=== PATIENT | female | born 1985 | race African-American/Black ===

== ENCOUNTER 2019-05-03 12:59 | Inpatient (IN) | payer OTHER ==
[2019-05-03 15:20] VITALS: BMI 20.9
--- NOTE | 2019-05-03 15:42 | HP ---
CIWA Score Nausea/Vomitin-No Nausea/No Vomiting Muscle Tremors: 1-None Visible, but [place] Anxiety: 4-Mod. Anxious/Guarded Agitation: 4-Moderately Restless Paroxysmal Sweats: 2 Orientation: 0-Oriented Tacttile Disturbances: 0-None Auditory Disturbances: 0-None Visual Disturbances: 0-None Headache: 2-Mild CIWA-Ar Total Score: 13 - Admission Criteria OASAS Guidelines: Admission for Medically Managed Detox: Requires at least one of the followin. CIWA greater than 12 2. Seizures within the past 24 hours 3. Delirium tremens within the past 24 hours 4. Hallucinations within the past 24 hours 5. Acute intervention needed for co occurring medical disorder 6. Acute intervention needed for co occurring psychiatric disorder 7. Severe withdrawal that cannot be handled at a lower level of care (continued vomiting, continued diarrhea, abnormal vital signs) requiring intravenous medication and/or fluids 8. Admitting History and Physical - Admission History of Present Illness: 33 yo f w/ PMH Bipolar I disorder who comes into [facility] for assistance with detoxification from alcohol. Patient endorses drinking an average of 1 pint of vodka and 3x 24 oz beers daily since the age of 18. Last drink was at 1am. Patient denies blackouts or seizures from alcohol. Patient endorses smoking $150 of crack daily since 31 years old. Last use was today. Patient endorses using marijuana 4 blunts per day since the age of 18. Last use thursday. Patient endorses smoking 2-4 cigarettes per day. The patient has tried to attended rehab and detox multiple times, with the most recent one being last year at [facility]. She completed the program but relapsed shortly after. She intended to undergo detox and rehab, preferably in a long-term program, this time around. The patient has been diagnosed with Bipolar type I and was previously on prozac and lamictal, but has not taken them in over a year 2/2 drug use. History Source: Patient Limitations to Obtaining History: No Limitations - Past Medical History Psych: Yes: Addictions, Bipolar (type 1) - Smoking History Smoking history: Current every day smoker Have you smoked in the past 12 months: Yes Aproximately how many cigarettes per day: 4 Admission ROS S - HPI Allergies/Adverse Reactions: Allergies Allergy/AdvReac Type Severity Reaction Status Date / Time No Known Allergies Allergy Verified 05/03/19 15:09 - Ebola screening Have you traveled outside of the country in the last 21 days: No Have you had contact with anyone from an Ebola affected area: No Do you have a fever: No - Review of Systems Constitutional: No Symptoms Reported EENT: reports: No Symptoms Reported Respiratory: reports: No Symptoms reported Cardiac: reports: No Symptoms Reported GI: reports: Nausea. denies: Vomiting : reports: No Symptoms Reported Musculoskeletal: reports: No Symptoms Reported Neuro: reports: Headache, Tremors Psychiatric: reports: Judgement Intact, Mood/Affect Appropiate, Orientated x3, Anxious Patient History - Smoking Cessation Smoking history: Current every day smoker Have you smoked in the past 12 months: Yes Aproximately how many cigarettes per day: 4 Initiated information on smoking cessation: Yes 'Breaking Loose' booklet given: 05/03/19 - Substances abused Crack Substance route: Smoking Frequency: Daily Amount used: $150 Age of first use: 31 Date of last use: 05/03/19 Alcohol Substance route: Oral Frequency: Daily Amount used: 2 pints of vodka & 3 24 oz beers Age of first use: 18 Date of last use: 05/02/19 Marijuana/Hashish Substance route: Smoking Frequency: Daily Amount used: 4 blunts Age of first use: 18 Date of last use: 04/29/19 Admission Physical Exam S - Vital Signs Vital Signs: Vital Signs - 24 hr 05/03/19 15:09 Temperature 98.7 F Pulse Rate 82 Respiratory 18 Rate Blood Pressure 118/81 - Physical General Appearance: Yes: Disheveled, Mild Distress HEENTM: Yes: EOMI, Normal ENT Inspection, JAIRON, Pharynx Normal Respiratory: Yes: Chest Non-Tender, Lungs Clear, Normal Breath Sounds, No Respiratory Distress, No Accessory Muscle Use Neck: Yes: Trachea in good position Cardiology: Yes: Regular Rhythm, Regular Rate, S1, S2. No: JVD, Murmur, Gallop/ S3, Gallop/S4 Abdominal: Yes: Normal Bowel Sounds, Non Tender, Flat, Soft Neurological: Yes: real estate leasing agent II-XII NML intact, Fully Oriented, Alert, Motor Strength 5/5, Normal Mood/Affect, Normal Response Integumentary: Yes: Normal Color, Dry, Warm - Diagnostic (1) Crack cocaine use Current Visit: Yes Status: Acute (2) Alcohol abuse Current Visit: Yes Status: Acute (3) Bipolar 1 disorder Current Visit: Yes Status: Acute Breathalyzer - Breathalyzer Breathalyzer: 0 Urine Drug Screen - Test Device Lot number: [id number] Expiration date: 12/01/20 - Control Is test valid?: Yes - Results Drug screen NEGATIVE: No Urine drug screen results: THC-Marijuana, DELLA-Cocaine Inpatient Rehab Admission - Rehab Decision to Admit Inpatient rehab admission?: No
--- NOTE | 2019-05-03 16:32 | PN ---
Teaching Attending Note Name of Resident: Candido Gtz ATTENDING PHYSICIAN STATEMENT I saw and evaluated the patient. I reviewed the resident's note and discussed the case with the resident. I agree with the resident's findings and plan as documented. SUBJECTIVE: 33 yo with h/o alcohol and crack cocaine use. Last drink yesterday- no h/o seizures/DT's. THC use. OBJECTIVE: Vital Signs - 24 hr 05/03/19 15:09 Temperature 98.7 F Pulse Rate 82 Respiratory 18 Rate Blood Pressure 118/81 ASSESSMENT AND PLAN: AUD- [facility] detox cocaine use- would like to rehab
[2019-05-03] MEDS ORDERED: METHOCARBAMOL 500 MG TABLET PO PRN (16:48)
[2019-05-03] MEDS ORDERED: hydrOXYzine PAMOATE 25 MG CAPSULE (FP) PO PRN (16:48)
[2019-05-03] MEDS ORDERED: MAGNESIUM HYDROX 2400MG/30ML ORAL SUSPENSION 30 ML CUP PO PRN (16:48)
[2019-05-03] MEDS ORDERED: chlordiazePOXIDE HCL 25 MG CAPSULE PO PRN (16:48)
[2019-05-03] MEDS ORDERED: BISMUTH SUBSALICYLATE 524 MG/30 ML UD PO PRN (16:48)
[2019-05-03] MEDS ORDERED: MAGNESIUM CITRATE 300 ML BOTTLE PO PRN (16:48)
[2019-05-03] MEDS ORDERED: MENTHOL/PHENOL 1 EACH UD MM PRN (16:48)
[2019-05-03] MEDS ORDERED: MAG HYDROX/AL HYDROX/SIMETH 30 ML UNIT-DOSE CUP PO PRN (16:48)
[2019-05-03] MEDS ORDERED: ACETAMINOPHEN 325 MG TABLET (FP) PO PRN ×2 (16:48)
[2019-05-03] MEDS ORDERED: IBUPROFEN 400 MG TABLET (FP) PO PRN (16:48)
[2019-05-03] MEDS: chlordiazePOXIDE HCL 25 MG CAPSULE PO SCH ×2 (18:06→22:02)
[2019-05-03] MEDS: THIAMINE HCL 100 MG TABLET (FP) PO SCH (22:03)
[2019-05-03] MEDS: MELATONIN 5 MG TABLETS PO PRN (22:04)
[2019-05-04] MEDS: chlordiazePOXIDE HCL 25 MG CAPSULE PO SCH ×5 (06:10→22:18)
[2019-05-04 10:24] LABS: HEMATOCRIT 37.4 % (32.4-45.2); HEMOGLOBIN 12.6 GM/dL (10.7-15.3); MCH 30.4 pg (25.7-33.7); MCHC 33.7 g/dl (32.0-36.0); MEAN CELL VOLUME 90.3 fl (80-96); MEAN PLT VOLUME 9.2 fl (7.5-11.1); PLATELET COUNT 239 K/MM3 (134-434); RBC 4.15 M/mm3 (3.60-5.2); RDW 13.4 % (11.6-15.6); WHITE BLOOD COUNT 5.4 K/mm3 (4.0-10.0)
[2019-05-04 10:42] LABS: ALBUMIN 3.6 g/dl (3.4-5.0); BILIRUBIN,TOTAL 0.6 mg/dL (0.2-1); BLOOD UREA NITROGEN 10.6 mg/dL (7-18); CALCIUM 9.5 mg/dL (8.5-10.1); CREATININE 0.7 mg/dL (0.55-1.3); POTASSIUM 3.4 mmol/L (3.5-5.1); TOT PROT 7.3 g/dl (6.4-8.2)
[2019-05-04] MEDS: NICOTINE 14 MG/24 HOURS TOPICAL PATCH TD SCH (10:49)
[2019-05-04] MEDS: PRENATAL VITAMINS W/ FOLIC ACID TABLET (FP) PO SCH (10:49)
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
--- NOTE | 2019-05-04 12:35 | PN ---
S CIWA - CIWA Score Nausea/Vomitin-No Nausea/No Vomiting Muscle Tremors: 2 Anxiety: 2 Agitation: 2 Paroxysmal Sweats: 1-Minimal Palms Moist Orientation: 0-Oriented Tacttile Disturbances: 1-Very Mild Itch/Numbness Auditory Disturbances: 0-None Visual Disturbances: 1-Very Mild Sensitivity Headache: 0-None Present CIWA-Ar Total Score: 9 BHS Progress Note (SOAP) Subjective: c/o of interrupted sleep, chills, sweats Objective: 05/04/19 12:35 Vital Signs Temperature 97.9 F 05/04/19 10:11 Pulse Rate 82 05/04/19 10:11 Respiratory Rate 18 05/04/19 10:11 Blood Pressure 109/64 05/04/19 10:11 O2 Sat by Pulse Oximetry (%) Laboratory Last Values WBC 5.4 K/mm3 (4.0-10.0) 05/04/19 07:40 RBC 4.15 M/mm3 (3.60-5.2) 05/04/19 07:40 Hgb 12.6 GM/dL (10.7-15.3) 05/04/19 07:40 Hct 37.4 % (32.4-45.2) 05/04/19 07:40 MCV 90.3 fl (80-96) 05/04/19 07:40 MCH 30.4 pg (25.7-33.7) 05/04/19 07:40 MCHC 33.7 g/dl (32.0-36.0) 05/04/19 07:40 RDW 13.4 % (11.6-15.6) 05/04/19 07:40 Plt Count 239 K/MM3 (134-434) 05/04/19 07:40 MPV 9.2 fl (7.5-11.1) 05/04/19 07:40 Sodium 139 mmol/L (136-145) 05/04/19 07:40 Potassium 3.4 mmol/L (3.5-5.1) L 05/04/19 07:40 Chloride 107 mmol/L (98-107) 05/04/19 07:40 Carbon Dioxide 26 mmol/L (21-32) 05/04/19 07:40 Anion Gap 6 MMOL/L (8-16) L 05/04/19 07:40 BUN 10.6 mg/dL (7-18) 05/04/19 07:40 Creatinine 0.7 mg/dL (0.55-1.3) 05/04/19 07:40 Est GFR (CKD-EPI)AfAm 131.02 05/04/19 07:40 Est GFR (CKD-EPI)NonAf 113.04 05/04/19 07:40 Random Glucose 92 mg/dL (74-106) 05/04/19 07:40 Calcium 9.5 mg/dL (8.5-10.1) 05/04/19 07:40 Total Bilirubin 0.6 mg/dL (0.2-1) 05/04/19 07:40 AST 13 U/L (15-37) L 05/04/19 07:40 ALT 18 U/L (13-61) 05/04/19 07:40 Alkaline Phosphatase 53 U/L (45-117) 05/04/19 07:40 Total Protein 7.3 g/dl (6.4-8.2) 05/04/19 07:40 Albumin 3.6 g/dl (3.4-5.0) 05/04/19 07:40 RPR Titer Nonreactive (NONREACTIVE) 05/04/19 07:40 Assessment: 05/04/19 12:35 AOx3 no acute distress EENT WNL Full ROM ambulating in the unit withdrawal sx Plan: increase PO fluids continue detox continue to monitor
--- NOTE | 2019-05-04 17:46 | EKG ---
Test Reason : Blood Pressure : / mmHG Vent. Rate : 074 BPM Atrial Rate : 074 BPM P-R Int : 130 ms QRS Dur : 090 ms QT Int : 382 ms P-R-T Axes : 035 079 053 degrees QTc Int : 424 ms NORMAL SINUS RHYTHM NORMAL ECG NO PREVIOUS ECGS AVAILABLE Confirmed by MINH CRUZ, ROS ([id number]) on 05/04/2019 5:45:56 PM Referred By: TIFFANY Confirmed By:ROS WILKINSON MD
[2019-05-04] MEDS: THIAMINE HCL 100 MG TABLET (FP) PO SCH (22:18)
[2019-05-04] MEDS: MELATONIN 5 MG TABLETS PO PRN (22:18)
[2019-05-05] MEDS: chlordiazePOXIDE HCL 25 MG CAPSULE PO SCH ×4 (05:56→22:13)
[2019-05-05] MEDS: PRENATAL VITAMINS W/ FOLIC ACID TABLET (FP) PO SCH (10:14)
[2019-05-05] MEDS: NICOTINE 14 MG/24 HOURS TOPICAL PATCH TD SCH (10:14)
--- NOTE | 2019-05-05 11:32 | PN ---
S CIWA - CIWA Score Nausea/Vomitin-No Nausea/No Vomiting Muscle Tremors: None Anxiety: 3 Agitation: 0-Normal Activity Paroxysmal Sweats: 3 Orientation: 0-Oriented Tacttile Disturbances: 0-None Auditory Disturbances: 0-None Visual Disturbances: 0-None Headache: 2-Mild CIWA-Ar Total Score: 8 BHS Progress Note (SOAP) Subjective: c/o headache, anxiety, and sweats. Objective: 05/05/19 11:32 Vital Signs 05/05/19 05/05/19 07:34 09:40 Temperature 98 F 9898.2 F H Pulse Rate 73 82 Respiratory 16 18 Rate Blood Pressure 97/62 103/61 Laboratory Last Values WBC 5.4 K/mm3 (4.0-10.0) 05/04/19 07:40 RBC 4.15 M/mm3 (3.60-5.2) 05/04/19 07:40 Hgb 12.6 GM/dL (10.7-15.3) 05/04/19 07:40 Hct 37.4 % (32.4-45.2) 05/04/19 07:40 MCV 90.3 fl (80-96) 05/04/19 07:40 MCH 30.4 pg (25.7-33.7) 05/04/19 07:40 MCHC 33.7 g/dl (32.0-36.0) 05/04/19 07:40 RDW 13.4 % (11.6-15.6) 05/04/19 07:40 Plt Count 239 K/MM3 (134-434) 05/04/19 07:40 MPV 9.2 fl (7.5-11.1) 05/04/19 07:40 Sodium 139 mmol/L (136-145) 05/04/19 07:40 Potassium 3.4 mmol/L (3.5-5.1) L 05/04/19 07:40 Chloride 107 mmol/L (98-107) 05/04/19 07:40 Carbon Dioxide 26 mmol/L (21-32) 05/04/19 07:40 Anion Gap 6 MMOL/L (8-16) L 05/04/19 07:40 BUN 10.6 mg/dL (7-18) 05/04/19 07:40 Creatinine 0.7 mg/dL (0.55-1.3) 05/04/19 07:40 Est GFR (CKD-EPI)AfAm 131.02 05/04/19 07:40 Est GFR (CKD-EPI)NonAf 113.04 05/04/19 07:40 Random Glucose 92 mg/dL (74-106) 05/04/19 07:40 Calcium 9.5 mg/dL (8.5-10.1) 05/04/19 07:40 Total Bilirubin 0.6 mg/dL (0.2-1) 05/04/19 07:40 AST 13 U/L (15-37) L 05/04/19 07:40 ALT 18 U/L (13-61) 05/04/19 07:40 Alkaline Phosphatase 53 U/L (45-117) 05/04/19 07:40 Total Protein 7.3 g/dl (6.4-8.2) 05/04/19 07:40 Albumin 3.6 g/dl (3.4-5.0) 05/04/19 07:40 RPR Titer Nonreactive (NONREACTIVE) 05/04/19 07:40 Labs noted with K+ level of 3.4 05/05/19 11:33 Assessment: 05/05/19 11:32 AOX3, in no acute respiratory distress. Full ROM, ambulating in the unit. Withdrawal symptoms. Hypokalemia. 05/05/19 11:34 Plan: continue detox. Increase fluids. Repeat K+level in AM.
[2019-05-05] MEDS: MELATONIN 5 MG TABLETS PO PRN (22:13)
[2019-05-05] MEDS: THIAMINE HCL 100 MG TABLET (FP) PO SCH (22:13)
[2019-05-06] MEDS ORDERED: chlordiazePOXIDE HCL 10 MG CAPSULE PO PRN
[2019-05-06] MEDS: chlordiazePOXIDE HCL 10 MG CAPSULE PO SCH ×4 (05:47→22:03)
[2019-05-06] MEDS: PRENATAL VITAMINS W/ FOLIC ACID TABLET (FP) PO SCH (10:05)
[2019-05-06] MEDS: NICOTINE 14 MG/24 HOURS TOPICAL PATCH TD SCH (10:06)
[2019-05-06] MEDS ORDERED: POTASSIUM CHLORIDE TABS 20 MEQ TABLET.ER (FP) PO ONE (11:36)
--- NOTE | 2019-05-06 11:36 | PN ---
S CIWA - CIWA Score Nausea/Vomitin-Mild Nausea/No Vomiting Muscle Tremors: 2 Anxiety: 1-Mildly Anxious Agitation: 1-Slight > Activity Paroxysmal Sweats: 1-Minimal Palms Moist Orientation: 0-Oriented Tacttile Disturbances: 0-None Auditory Disturbances: 0-None Visual Disturbances: 0-None Headache: 1-Very Mild CIWA-Ar Total Score: 7 BHS Progress Note (SOAP) Subjective: admitted with 33 yo with h/o alcohol and crack cocaine use, no complaints today. O: Vital Signs - 24 hr 05/05/19 05/05/19 05/05/19 12:59 17:14 21:31 Temperature 98.1 F 98.2 F 98.1 F Pulse Rate 88 81 73 Respiratory 17 18 18 Rate Blood Pressure 155/57 L 108/65 114/71 05/06/19 05/06/19 05/06/19 00:30 03:30 06:00 Temperature 97.7 F Pulse Rate 83 Respiratory 16 16 16 Rate Blood Pressure 115/54 L 05/06/19 09:43 Temperature 97.0 F L Pulse Rate 79 Respiratory 18 Rate Blood Pressure 97/63 Laboratory Tests 05/03/19 05/04/19 05/04/19 15:35 07:40 07:40 WBC 5.4 RBC 4.15 Hgb 12.6 Hct 37.4 MCV 90.3 MCH 30.4 MCHC 33.7 RDW 13.4 Plt Count 239 MPV 9.2 Sodium 139 Potassium 3.4 L Chloride 107 Carbon Dioxide 26 Anion Gap 6 L BUN 10.6 Creatinine 0.7 Est GFR (CKD-EPI)AfAm 131.02 Est GFR (CKD-EPI)NonAf 113.04 Random Glucose 92 Calcium 9.5 Total Bilirubin 0.6 AST 13 L ALT 18 Alkaline Phosphatase 53 Total Protein 7.3 Albumin 3.6 POC Urine HCG, Qual Negative RPR Titer 05/04/19 07:40 WBC RBC Hgb Hct MCV MCH MCHC RDW Plt Count MPV Sodium Potassium Chloride Carbon Dioxide Anion Gap BUN Creatinine Est GFR (CKD-EPI)AfAm Est GFR (CKD-EPI)NonAf Random Glucose Calcium Total Bilirubin AST ALT Alkaline Phosphatase Total Protein Albumin POC Urine HCG, Qual RPR Titer Nonreactive low potassium a/p: continue alcohol detox- d/s 05/08
[2019-05-06] MEDS: THIAMINE HCL 100 MG TABLET (FP) PO SCH (21:33)
[2019-05-06] MEDS: MELATONIN 5 MG TABLETS PO PRN (22:03)
[2019-05-07] MEDS: chlordiazePOXIDE HCL 10 MG CAPSULE PO SCH ×2 (06:35→17:25)
[2019-05-07] MEDS: PRENATAL VITAMINS W/ FOLIC ACID TABLET (FP) PO SCH (10:39)
[2019-05-07] MEDS: NICOTINE 14 MG/24 HOURS TOPICAL PATCH TD SCH (10:39)
--- NOTE | 2019-05-07 14:48 | PN ---
S CIWA - CIWA Score Nausea/Vomitin-Mild Nausea/No Vomiting Muscle Tremors: 2 Anxiety: 1-Mildly Anxious Agitation: 1-Slight > Activity Paroxysmal Sweats: 1-Minimal Palms Moist Orientation: 0-Oriented Tacttile Disturbances: 0-None Auditory Disturbances: 0-None Visual Disturbances: 0-None Headache: 1-Very Mild CIWA-Ar Total Score: 7 BHS Progress Note (SOAP) Subjective: pt here for detox from alcohol, completing detox tomorrow O: Vital Signs - 24 hr 05/06/19 05/06/19 05/07/19 17:38 21:55 00:30 Temperature 98.1 F 98.2 F Pulse Rate 81 74 Respiratory 18 18 18 Rate Blood Pressure 115/56 L 111/71 05/07/19 05/07/19 05/07/19 03:50 08:42 10:05 Temperature 98.2 F 97.7 F Pulse Rate 70 68 Respiratory 16 16 16 Rate Blood Pressure 91/55 L 107/65 Laboratory Tests 05/03/19 05/04/19 05/04/19 15:35 07:40 07:40 WBC 5.4 RBC 4.15 Hgb 12.6 Hct 37.4 MCV 90.3 MCH 30.4 MCHC 33.7 RDW 13.4 Plt Count 239 MPV 9.2 Sodium 139 Potassium 3.4 L Chloride 107 Carbon Dioxide 26 Anion Gap 6 L BUN 10.6 Creatinine 0.7 Est GFR (CKD-EPI)AfAm 131.02 Est GFR (CKD-EPI)NonAf 113.04 Random Glucose 92 Calcium 9.5 Total Bilirubin 0.6 AST 13 L ALT 18 Alkaline Phosphatase 53 Total Protein 7.3 Albumin 3.6 POC Urine HCG, Qual Negative RPR Titer 05/04/19 07:40 WBC RBC Hgb Hct MCV MCH MCHC RDW Plt Count MPV Sodium Potassium Chloride Carbon Dioxide Anion Gap BUN Creatinine Est GFR (CKD-EPI)AfAm Est GFR (CKD-EPI)NonAf Random Glucose Calcium Total Bilirubin AST ALT Alkaline Phosphatase Total Protein Albumin POC Urine HCG, Qual RPR Titer Nonreactive low potassium- 3.4 a/p alcohol detox for AUD anticipate discharge tomorrow on potassium supplement
[2019-05-07] MEDS: MELATONIN 5 MG TABLETS PO PRN (22:34)
[2019-05-07] MEDS: THIAMINE HCL 100 MG TABLET (FP) PO SCH (22:34)
[2019-05-08] MEDS ORDERED: chlordiazePOXIDE HCL 10 MG CAPSULE PO ONE (05:00)
[2019-05-08 09:11] VITALS: BP 123/71; PULSE 63; TEMP 97.9
[2019-05-08] MEDS: NICOTINE 14 MG/24 HOURS TOPICAL PATCH TD SCH (10:40)
[2019-05-08] MEDS: PRENATAL VITAMINS W/ FOLIC ACID TABLET (FP) PO SCH (10:40)
--- NOTE | 2019-05-08 15:32 | DS ---
[facility] Detox Discharge Summary Admission Date: 05/03/19 - History Present History: Alcohol Dependence, Cannabis Dependence, Cocaine Dependence Additional Comments: Pt completed detox successfully and discharged safely. Pt accepted admission to [facility] inpatient rehab. - Physical Exam Results Vital Signs: Vital Signs Temperature 97.9 F 05/08/19 09:10 Pulse Rate 63 05/08/19 09:10 Respiratory Rate 18 05/08/19 09:10 Blood Pressure 123/71 05/08/19 09:10 O2 Sat by Pulse Oximetry (%) Pertinent Admission Physical Exam Findings: Withdrawal sxs Laboratory Tests 05/03/19 05/04/19 05/04/19 15:35 07:40 07:40 WBC 5.4 RBC 4.15 Hgb 12.6 Hct 37.4 MCV 90.3 MCH 30.4 MCHC 33.7 RDW 13.4 Plt Count 239 MPV 9.2 Sodium 139 Potassium 3.4 L Chloride 107 Carbon Dioxide 26 Anion Gap 6 L BUN 10.6 Creatinine 0.7 Est GFR (CKD-EPI)AfAm 131.02 Est GFR (CKD-EPI)NonAf 113.04 Random Glucose 92 Calcium 9.5 Total Bilirubin 0.6 AST 13 L ALT 18 Alkaline Phosphatase 53 Total Protein 7.3 Albumin 3.6 POC Urine HCG, Qual Negative RPR Titer 05/04/19 07:40 WBC RBC Hgb Hct MCV MCH MCHC RDW Plt Count MPV Sodium Potassium Chloride Carbon Dioxide Anion Gap BUN Creatinine Est GFR (CKD-EPI)AfAm Est GFR (CKD-EPI)NonAf Random Glucose Calcium Total Bilirubin AST ALT Alkaline Phosphatase Total Protein Albumin POC Urine HCG, Qual RPR Titer Nonreactive Labs reviewed: K 3.4 replenished - Treatment Hospital Course: Detox Protocol Followed, Detoxed Safely, Responded well, Discharged Condition Good, Rehab Referral Accepted - Medication Discharge Medications: Ambulatory Orders Fluoxetine HCl [Prozac -] 20 mg PO DAILY 05/03/19 Lamotrigine [Lamictal -] 100 mg PO DAILY 05/03/19 - Diagnosis (1) Alcohol dependence with uncomplicated withdrawal Status: Acute (2) Cannabis dependence Status: Acute (3) Cocaine dependence Status: Acute (4) Bipolar 1 disorder Status: Chronic (5) Nicotine dependence Status: Chronic - AMA Did Patient Leave Against Medical Advice: No ([facility])
== END 2019-05-08 11:34 | disposition other institution (70) | DRG 774 ==
LOC: EDBD 12:59 → YASAS 12:59 → Y6N 17:19
PROVIDERS: ADMIT Allergy & Immunology; ATTEND Allergy & Immunology
PROC: HZ2ZZZZ Detoxification Services for Substance Abuse Treatment (ICD-10-PCS; principal; 2019-05-03)
DX: F10.230 Alcohol dependence with withdrawal, uncomplicated (principal); F14.20 Cocaine dependence, uncomplicated; F12.20 Cannabis dependence, uncomplicated; F17.210 Nicotine dependence, cigarettes, uncomplicated; F31.89 Other bipolar disorder; F19.24 Other psychoactive substance dependence with psychoactive substance-induced mood disorder; E87.6 Hypokalemia
CPT/HCPCS: 36415; 80053; 81025; 85027; 86593; 93005; 93010

== ENCOUNTER 2019-05-08 11:44 | Inpatient (IN) | payer OTHER ==
--- NOTE | 2019-05-08 15:43 | HP ---
AUGUST CRUZ Rehab Assess/Revision - Admission History Admitted to Rehab from: [facility] Date of Admission to Rehab: 05/08/2019 - Findings Detox History & Physical reviewed: Yes Concur with findings: Yes Inpatient Rehab Admission - Rehab Decision to Admit Inpatient rehab admission?: Yes - Initial Determination Are CD services needed?: No Free of communicable disease: Yes Not in need of hospitalization: No - Rehab Admission Criteria Previous failed treatment: Yes Poor recovery environment: Yes Comorbidities: Yes Lacks judgement: Yes Patient is meeting Inpatient Rehab admission criteria:: Yes
[2019-05-08] MEDS ORDERED: P-EPHED 60MG/TRIPROLIDI 2.5MG TABLET PO PRN (15:44)
[2019-05-08] MEDS ORDERED: IBUPROFEN 400 MG TABLET (FP) PO PRN (15:44)
[2019-05-08] MEDS ORDERED: ACETAMINOPHEN 325 MG TABLET (FP) PO PRN (15:44)
[2019-05-08] MEDS ORDERED: hydrOXYzine PAMOATE 50 MG CAPSULE (FP) PO PRN (15:44)
[2019-05-08] MEDS ORDERED: LOPERAMIDE HCL 2 MG CAPSULE PO PRN (15:44)
[2019-05-08] MEDS ORDERED: MAGNESIUM HYDROX 2400MG/30ML ORAL SUSPENSION 30 ML CUP PO PRN (15:44)
[2019-05-08] MEDS ORDERED: MAG HYDROX/AL HYDROX/SIMETH 30 ML UNIT-DOSE CUP PO PRN (15:44)
[2019-05-08] MEDS ORDERED: MENTHOL/PHENOL 1 EACH UD MM PRN (15:44)
[2019-05-08] MEDS ORDERED: MAGNESIUM CITRATE 300 ML BOTTLE PO PRN (15:44)
[2019-05-08] MEDS ORDERED: NICOTINE POLACRILEX 2 MG GUM BUC PRN (15:44)
[2019-05-08] MEDS ORDERED: guaiFENesin 200 MG/10 ML 10 ML UNIT-DOSE CUPS PO PRN (15:44)
[2019-05-08] MEDS: THIAMINE HCL 100 MG TABLET (FP) PO SCH (21:36)
[2019-05-08] MEDS: MELATONIN 5 MG TABLETS PO PRN (21:37)
[2019-05-09] MEDS: PRENATAL VITAMINS W/ FOLIC ACID TABLET (FP) PO SCH (09:08)
--- NOTE | 2019-05-09 11:01 | PN ---
[facility] Progress Note Note: Pt is a 33 y/o female with a hx of MAN-alcohol/crack admitted to rehab on after detox treatment. pt reports she has a primary care provider, Dr. Irizarry at [facility] on [place], [place]. Pt interested in PrEP. Vital Signs - 24 hr 05/09/19 06:55 Temperature 98.3 F Pulse Rate 71 Respiratory 16 Rate Blood Pressure 97/63 Alert o x 3, denies s/h/i. nad oob ambulating with steady gait. A/P s/p detox new rehab pt. Continue rehab PrEP screen done. Mr. Khan at [facility] informed. Pt will be followed up by [facility] counselor, Mr. Khan. follow up with psych for medication restart. Maintain safety.
--- NOTE | 2019-05-09 11:08 | PREP.REFER ---
HIV PrEP/PEP - PrEP HIV Risk Assessment When was your last HIV test?: 05/09/19 HIV Test offered: Accepted Are you concerned about any sexual encounters past 6 months?: Yes Have you had a STI in the last 6 months?: No Have you shared needles or other equipment?: No Are you interested in daily medication to help prevent HIV?: Yes Recommendation: Consider PrEP referral Comment: Pt wants to be seen by PrEP counselor in [facility]
[2019-05-09] MEDS: MELATONIN 5 MG TABLETS PO PRN (21:51)
[2019-05-09] MEDS: THIAMINE HCL 100 MG TABLET (FP) PO SCH (21:51)
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
[2019-05-10] MEDS: risperiDONE 1 MG TABLET (FP) PO SCH ×2 (10:31→21:35)
[2019-05-10] MEDS: PRENATAL VITAMINS W/ FOLIC ACID TABLET (FP) PO SCH (10:31)
[2019-05-10] MEDS: MELATONIN 5 MG TABLETS PO PRN (21:35)
[2019-05-10] MEDS: THIAMINE HCL 100 MG TABLET (FP) PO SCH (21:35)
[2019-05-10] MEDS ORDERED: SUVOREXANT 10 MG TABLET PO PRN (22:00)
[2019-05-11 07:19] VITALS: BP 99/66; PULSE 72; TEMP 97.8
[2019-05-11] MEDS: risperiDONE 1 MG TABLET (FP) PO SCH (09:34)
[2019-05-11] MEDS: PRENATAL VITAMINS W/ FOLIC ACID TABLET (FP) PO SCH (09:34)
--- NOTE | 2019-05-11 09:50 | DS ---
[facility] Rehab Discharge Summary - [facility] Rehab Discharge Summary Admission Date: 05/08/19 Discharge Date: 05/11/19 - History Present History: Alcohol dependence, Cannabis dependence Additional Comments: Patient no longer wishes to continue treatment left AMA. Patient advised on the risk which include relapse, injury or . Patient to follow up with outpatient programs and primary care provider. If worsening symptoms are present patient to seek medical attention or 911. - Discharge Physical Exam Vital Signs: Vital Signs Temperature 97.8 F 05/11/19 07:18 Pulse Rate 72 05/11/19 07:18 Respiratory Rate 16 05/11/19 07:18 Blood Pressure 99/66 05/11/19 07:18 O2 Sat by Pulse Oximetry (%) Pertinent Admission Physical Exam Findings: stable Denies SI/HI AOx3 no acute distress Full ROM no gait disturbance no adventitious breath sounds No edema or erythema Vital Signs Temperature 97.8 F 05/11/19 07:18 Pulse Rate 72 05/11/19 07:18 Respiratory Rate 16 05/11/19 07:18 Blood Pressure 99/66 05/11/19 07:18 O2 Sat by Pulse Oximetry (%) Laboratory Last Values HIV 1&2 Antibody Screen Negative 05/09/19 08:15 HIV P24 Antigen Negative 05/09/19 08:15 - Treatment Discharge Condition: Discharge condition good - Medication Discharge Medications: Ambulatory Orders Fluoxetine HCl [Prozac -] 20 mg PO DAILY 05/03/19 Lamotrigine [Lamictal -] 100 mg PO DAILY 05/03/19 - Medication-Assisted Treatment (MAT) Medication-Assisted Treatment (MAT): No - Discharge Instructions Diet, activity, other medical instructions: Diet: Activity: Other medical instructions: - Diagnosis (1) Alcohol dependence Current Visit: Yes Status: Acute (2) Cannabis dependence Current Visit: No Status: Acute (3) Cocaine dependence Current Visit: No Status: Acute (4) Nicotine dependence Current Visit: No Status: Chronic - AMA Did Patient Leave Against Medical Advice: Yes
== END 2019-05-11 10:25 | disposition left against medical advice (07) | DRG 770 ==
LOC: YASAS 11:44 → Y3E 11:46
PROVIDERS: ADMIT Neuromusculoskeletal Medicine & OMM; ATTEND Neuromusculoskeletal Medicine & OMM
PROC: HZ42ZZZ Group Counseling for Substance Abuse Treatment, Cognitive-Behavioral (ICD-10-PCS; principal; 2019-05-08)
DX: F10.230 Alcohol dependence with withdrawal, uncomplicated (principal); F14.20 Cocaine dependence, uncomplicated; F12.20 Cannabis dependence, uncomplicated; F17.210 Nicotine dependence, cigarettes, uncomplicated; F19.282 Other psychoactive substance dependence with psychoactive substance-induced sleep disorder; F19.24 Other psychoactive substance dependence with psychoactive substance-induced mood disorder; F31.9 Bipolar disorder, unspecified
CPT/HCPCS: 36415; 87389; J2794